=== PATIENT | female | born 1965 | race African-American/Black ===

== ENCOUNTER 2019-10-16 18:26 | Emergency (ER) | payer OTHER ==
[~2019-10-16] VITALS: Ht 165.1 cm; Wt 71.7 kg
[2019-10-16 18:42] VITALS: BP_SYST 218
--- NOTE | 2019-10-16 19:45 | NUR ---
mPlaced in room 8 . Placed on alarm security or surveillance monitor, blood pressure machine and pulse oximeter. To gown for exam. Side rails up.
--- NOTE | 2019-10-16 20:00 | NUR ---
Patient is AAO x 4 and ambulatory, complains of pain to head, "feels pressure in head" after hitting her head twice around 1pm today. Pt states she fell and hit the left side of her head on the concrete, no KO but "felt disoriented for 5 minutes." Pt then stated she took a step up and hit the top of her head on a concrete ledge, no KO. -N/V. minimal sensitivity to light. Pt also complains of pain to back of left ankle stating her grand daughter "ran her foot over with a grocery cart on Sunday" and the next two days patient was unable to bear weight on it. NO other injuries/complaints per patient or noted.
--- NOTE | 2019-10-16 20:08 | NUR ---
ER Dr. Nuñez at bedside examining patient.
[2019-10-16] MEDS ORDERED: hydrALAZINE HCL 20 MG/ML VIAL IVP ONE ×2 (20:15→21:30)
--- NOTE | 2019-10-16 20:25 | NUR ---
Patient went to CT in stable condition.
--- NOTE | 2019-10-16 20:40 | NUR ---
Patient returned from CT in stable condition.
--- NOTE | 2019-10-16 20:51 | NUR ---
Medication was given, pt tolerated well. No adeverse reaction, will continue to monitor.
[2019-10-16] MEDS ORDERED: KETOROLAC TROMETHAMINE 30 MG VIAL IVP ONE (21:30)
--- NOTE | 2019-10-16 22:15 | NUR ---
Current Blood pressure is 172/100. Dr. Nuñez made aware.
--- NOTE | 2019-10-16 22:26 | NUR ---
Verbal order received from Dr. Nuñez to administer Morphine 4 mg IVP for pain.
[2019-10-16] MEDS ORDERED: MORPHINE 4 MG/ML INJ. SYRINGE ONE (22:44)
[2019-10-16] MEDS ORDERED: MORPHINE 4 MG/ML INJ. SYRINGE IVP ONE (22:45)
[2019-10-16] MEDS ORDERED: LORazepam 2 MG/ML VIAL IVP ONE (23:30)
--- NOTE | 2019-10-16 23:38 | NUR ---
Medication was given, pt tolerated well. No adverse reaction, will continue to monitor.
--- NOTE | 2019-10-16 23:50 | NUR ---
Patient reported that her will be able to pick her up around midnight.
--- NOTE | 2019-10-17 00:15 | NUR ---
Patient is sleeping in bed. Woke up patient and asked if she was able to get a hold of her ride. Per pt she will call again.
--- NOTE | 2019-10-17 01:00 | NUR ---
Patient sleeping comfortably in bed. No acute distress, will continue to monitor.
--- NOTE | 2019-10-17 02:35 | NUR ---
Pt sleeping comfortably in bed. No acute distress, will continue to monitor.
--- NOTE | 2019-10-17 03:19 | NUR ---
Patient was asked when ride will be arriving. Pt gave phone number for us to call.
--- NOTE | 2019-10-17 03:23 | NUR ---
Called patient's ride numerous times, no response.
[2019-10-17 03:45] VITALS: BP_SYST 145
--- NOTE | 2019-10-17 03:45 | NUR ---
Patient given written and verbal discharge instructions and verbalizes understanding. ER MD discussed with patient the results and treatment provided. Patient in stable condition. ID arm band removed. IV catheter removed intact and dressing applied, no active bleeding. Rx of Lisinopril, Ativan, and Acetaminophen given. Patient educated on pain management and to follow up with PMD. Pain Scale 0. Opportunity for questions provided and answered. Medication side effect fact sheet provided.
--- NOTE | 2019-10-17 10:25 | NUR ---
Received a call from pharmacy [facility], patient given Ativan by Dr Nuñez , pt has allergies to diazepam, per Dr Bro patient can have Ativan Rx as ordered. pharmaciest notified.
== END 2019-10-17 03:45 | disposition home or self-care (01) ==
LOC: SED 18:26
DX: S93.402A Sprain of unspecified ligament of left ankle, initial encounter (principal); S09.8XXA Other specified injuries of head, initial encounter; I10 Essential (primary) hypertension; F41.9 Anxiety disorder, unspecified; Z88.6 Allergy status to analgesic agent; W01.198A Fall on same level from slipping, tripping and stumbling with subsequent striking against other object, initial encounter; Y93.01 Activity, walking, marching and hiking; Y92.89 Other specified places as the place of occurrence of the external cause; Y99.8 Other external cause status
CPT/HCPCS: 29515; 70450; 73610; 96374; 96375; 96376; 99284; J0360; J1885; J2060; J2270